=== PATIENT | female | born 1995 | race Caucasian/White ===

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

== ENCOUNTER 2017-02-16 09:28 | Emergency (ER) | payer SELFPAY ==
[~2017-02-16] VITALS: Ht 157.5 cm; Wt 104.3 kg
[~2017-02-16 09:28] MED LIST changes: +CEFD300C3 PO; +PHEN-640 PO
[2017-02-16] MEDS ORDERED: PRD20T PO (10:40)
--- NOTE | 2017-02-16 10:40 | ED EENT ---
History of Present Illness General Chief Complaint: Cough/Cold/Flu Symptoms Stated Complaint: SORE THROAT, FEVER Nursing Triage Note: C/O SORE THROAT FOR ABOUT 2 DAYS. C/O OF BODY ACHES. ALSO C/O NECK PAIN, STARTED TODAY. PT. STATES SHE'S HAD A TEMP. TEMP IN ER AT 99.7. PT HAS NOT TAKEN TYLENOL THIS AM BUT TOOK SOME LAST NIGHT. Source: patient Exam Limitations: no limitations History of Present Illness Time seen by provider: 10:37 Initial Comments To ER with sore throat and ear pain for 2 days. She also has generalized body aches. She has neck pain when turning her neck side to side. She is however able to flex her chin to her chest and extend her neck without pain. Return is 99.7 upon arrival to ER. No antipyretics since last night. No cough. Timing/Duration: abrupt Severity: moderate Associated Symptoms: fever, tooth pain Allergies and Home Medications Allergies Coded Allergies: azithromycin (Verified Allergy, Severe, rash, 07/26/16) Home Medications Cefdinir 300 Mg Capsule, 300 MG PO BID, #14 Ref 0 Prescribed by: CARISA AVILEZ on 07/26/162034 Docusate Sodium 100 Mg Capsule, 100 MG PO BID PRN for CONSTIPATION, #60 Ref 2 Prescribed by: KAYLA PALOMARES on 10/05/15 0950 Ferrous Sulfate 325 Mg Tablet, 325 MG PO DAILY, #30 Ref 2 Prescribed by: KAYLA PALOMARES on 10/05/15 0950 Ibuprofen 600 Mg Tablet, 600 MG PO Q6H, #30 Prescribed by: KAYLA PALOMARES on 10/05/15 0950 Phenazopyridine HCl 200 Mg Tablet, 1 TAB PO Q8H PRN for pain, #30 Ref 0 Prescribed by: CARISA AVILEZ on 07/26/162034 Review of Systems Constitutional: see HPI Eyes: No Symptoms Reported Ears: See HPI, Pain Nose: no symptoms reported Mouth: no symptoms reported Throat: see HPI, pain Respiratory: no symptoms reported Cardiovascular: no symptoms reported : No Musculoskeletal: no symptoms reported Past Uqyjiow-Orcgfx-Nusbln Hx Patient Social History Recent Foreign Travel: No Contact w/Someone Who Travel: No Recent Infectious Disease Expo: No Recent Hopitalizations: No Immunizations Up To Date Tetanus Booster (TDap): Less than 5yrs PED Vaccines UTD: Yes Seasonal Allergies Seasonal Allergies: No Surgeries History of Surgeries: No Respiratory History of Respiratory Disorde: No Cardiovascular History of Cardiac Disorders: No Neurological History of Neurological Disord: No Reproductive System Hx Reproductive Disorders: No 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 Physical Exam Vital Signs Vital Sign - Last 12Hours 02/16/17 09:40 Temp 99.7 Pulse 110 Resp 18 B/P (MAP) 139/78 General Appearance: WD/WN, no apparent distress Eyes: bilateral eye normal inspection, bilateral eye PERRL, bilateral eye EOMI Ears: bilateral ear auricle normal, bilateral ear canal normal, bilateral ear TM normal, bilateral ear other (tympanic membranes are normal in appearance) Mouth/Throat: other (minor pharyngeal erythema. She is able to flex her chin to her chest without any pain in her neck. She does have pain in her neck when turning her head from side to side and the pain is lateral) Neck: non-tender, full range of motion, lymphadenopathy (R), lymphadenopathy (L ) Respiratory: normal breath sounds, no respiratory distress, no accessory muscle use Gastrointestinal: normal bowel sounds, non tender Neurologic/Psychiatric: alert, normal mood/affect, oriented x 3 Skin: normal color, warm/dry Progress/Results/Core Measures Results/Orders Lab Results Laboratory Tests Test 02/16/17 09:49 Range/Units Group A Streptococcus Screen NEGATIVE NEGATIVE Micro Results Microbiology 02/16/17 Influenza Types A,B Antigen (TERESA) - Final, Complete Vital Signs/I&O Vital Sign - Last 12Hours 02/16/17 09:40 Temp 99.7 Pulse 110 Resp 18 B/P (MAP) 139/78 Departure Impression Impression: Primary Impression: Viral pharyngitis Disposition: 01 HOME, SELF-CARE Condition: Stable Departure-Patient Inst. Decision time for Depature: 10:39 Referrals: NO,LOCAL PHYSICIAN (PCP/Family) Primary Care Physician Patient Instructions: Viral Pharyngitis Add. Discharge Instructions: 1. Use Tylenol and Motrin to help with body aches and sore throat and fever 2. Drink clear fluids 3. Fill the steroids today. All discharge instructions reviewed with patient and/or family. Voiced understanding. Scripts Prednisone (Prednisone) 20 Mg Tab 40 MG PO DAILY, #6 TAB Prov: ELENA ELLIS APRN 02/16/17 Work/School Note: Work Release Form Date Seen in the Emergency Department: Feb 16, 2017 Return to Work: Feb 18, 2017 ELENA ELLIS APRN Feb 16, 2017 10:40
== END 2017-02-16 10:45 | disposition home or self-care (01) ==
LOC: EDUNIT# 09:28 → ER 09:31
DX: J02.8 Acute pharyngitis due to other specified organisms (principal); Z97.5 Presence of (intrauterine) contraceptive device
CPT/HCPCS: 87430; 87804; 99282

== ENCOUNTER 2017-02-20 09:47 | Emergency (ER) | payer SELFPAY ==
[~2017-02-20] VITALS: Ht 157.5 cm; Wt 99.8 kg
[~2017-02-20 09:47] MED LIST changes: +PRD20T PO
[2017-02-20] MEDS ORDERED: AMOX-358 PO (09:58)
--- NOTE | 2017-02-20 09:58 | ED EENT ---
History of Present Illness General Chief Complaint: Pediatric Illness/Problems Stated Complaint: R EAR DISCOMFORT Source: patient Exam Limitations: no limitations History of Present Illness Time seen by provider: 09:48 Initial Comments Patient presents to ER by private conveyance with a chief complaint that she is having right ear pain and fullness and decreased hearing. She's had no fevers chills nausea or vomiting. She says she was seen a couple days ago in the ER for a cold and told it was a virus. She says they looked in her ears but did not tell her if there is any problem with that at the time. She has no nausea vomiting or diarrhea. No smoking and no history of prior ear surgery. Previous records indicate the patient was seen on 16 February 2017 and both TMs were normal. She was treated for a virus and given prednisone. Allergies and Home Medications Allergies Coded Allergies: azithromycin (Verified Allergy, Severe, rash, 07/26/16) Home Medications Cefdinir 300 Mg Capsule, 300 MG PO BID, #14 Ref 0 Prescribed by: CARISA AVILEZ on 07/26/162034 Docusate Sodium 100 Mg Capsule, 100 MG PO BID PRN for CONSTIPATION, #60 Ref 2 Prescribed by: KAYLA PALOMARES on 10/05/15 0950 Ferrous Sulfate 325 Mg Tablet, 325 MG PO DAILY, #30 Ref 2 Prescribed by: KAYLA PALOMARES on 10/05/15 0950 Ibuprofen 600 Mg Tablet, 600 MG PO Q6H, #30 Prescribed by: KAYLA PALOMARES on 10/05/15 0950 Phenazopyridine HCl 200 Mg Tablet, 1 TAB PO Q8H PRN for pain, #30 Ref 0 Prescribed by: CARISA AVILEZ on 07/26/162034 Prednisone 20 Mg Tab, 40 MG PO DAILY, #6 Prescribed by: ELENA ELLIS on 02/16/17 1040 Review of Systems Constitutional: No chills, No fever, No malaise Eyes: Denies Blurred Vision, Denies Drainage, Denies Pain Ears: Denies Dizziness, Pain (fullness and difficulty hearing out of the right ear), Denies Tinnitus, Denies Bloody Discharge, Denies Clear Discharge, Denies Purulent Discharge, Denies Serosanguinous Discharge, Denies Previous Injury Nose: congestion, denies pain Mouth: denies clots, denies loose teeth Throat: denies pain, denies swelling Respiratory: No cough, No short of breath Past Pzhttty-Jnmqyd-Gnwzxx Hx Patient Social History Alcohol Use: Denies Use Recreational Drug Use: No Smoking Status: Never a Smoker Recent Foreign Travel: No Contact w/Someone Who Travel: No Recent Hopitalizations: No Immunizations Up To Date Tetanus Booster (TDap): Less than 5yrs PED Vaccines UTD: Yes Seasonal Allergies Seasonal Allergies: No Surgeries History of Surgeries: No Respiratory History of Respiratory Disorde: No Cardiovascular History of Cardiac Disorders: No Neurological History of Neurological Disord: No Reproductive System Hx Reproductive Disorders: No HIV/AIDS: 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 Physical Exam General Appearance: WD/WN, no apparent distress Eyes: bilateral eye normal inspection, bilateral eye PERRL, bilateral eye EOMI Ears: right ear erythema, right ear tenderness, right ear TM red, left ear TM bulging, left ear other (serous effusion), bilateral ear auricle normal, bilateral ear canal normal, bilateral ear TM dull Nose: normal inspection, No sinus tenderness Mouth/Throat: normal mouth inspection, pharynx normal Neck: non-tender, supple, normal inspection Neurologic/Psychiatric: alert, oriented x 3 Departure Impression Impression: Primary Impression: Acute otitis media, right Additional Impression: Acute serous otitis media of left ear without rupture Disposition: 01 HOME, SELF-CARE Condition: Stable Departure-Patient Inst. Decision time for Depature: 09:56 Referrals: NO,LOCAL PHYSICIAN (PCP/Family) Primary Care Physician Patient Instructions: Ear Infections (Otitis Media) (DC) Add. Discharge Instructions: Drink plenty of fluids use Tylenol 1000 mg every 8 hours and or ibuprofen 800 mg every 8 hours for pain. Obtain a bottle of Flonase, fluticasone or Nasacort and use 1 spray each nostril daily for the next 2 weeks to help drain your ears. Obtain the antibiotics from the pharmacy and take one capsule with food twice a day to completion. Discontinue use of the prednisone today. All discharge instructions reviewed with patient and/or family. Voiced understanding. Scripts Amoxicillin/Potassium Clav (Augmentin 875-125 Tablet) 1 Each Tablet 1 EACH PO BID for 10 Days, #20 TAB 0 Refills Prov: CHARMAINE HERNANDEZ 02/20/17 CHARMAINE HERNANDEZ Feb 20, 2017 09:58
== END 2017-02-20 10:04 | disposition home or self-care (01) ==
LOC: EDUNIT# 09:47 → ER 09:47
DX: H65.02 Acute serous otitis media, left ear (principal)
CPT/HCPCS: 99282

== ENCOUNTER 2017-11-21 20:00 | Emergency (ER) | payer MEDICAID, OTHER ==
[~2017-11-21] VITALS: Ht 157.5 cm; Wt 99.8 kg
[~2017-11-21 20:00] MED LIST changes: +AMOX-358 PO; -FERR-74 PO; +FERR325T18 PO
[2017-11-21 20:29] LABS: BILIRUBIN,URINE NEGATIVE (NEGATIVE); CLARITY,URINE CLEAR; COLOR,URINE YELLOW; GLUCOSE, URINE (UA) NEGATIVE (NEGATIVE); KETONES,URINE NEGATIVE (NEGATIVE); LEUKOCYTE ESTERASE ,URINE NEGATIVE (NEGATIVE); NITRITE,URINE NEGATIVE (NEGATIVE); PH,URINE 7 (5-9); PROTEIN,URINE NEGATIVE (NEGATIVE); UROBILINOGEN,URINE NORMAL (NORMAL)
[2017-11-21 20:30] LABS: BASOPHILS % (AUTO) 0 % (0-10); EOSINOPHILS # (AUTO) 0.2 10^3/uL (0.0-0.3); EOSINOPHILS % (AUTO) 1 % (0-10); HEMATOCRIT 39 % (35-52); HEMOGLOBIN 13.8 G/DL (11.5-16.0); LYMPHOCYTES # (AUTO) 3.9 X 10^3 (1.0-4.0); LYMPHOCYTES % (AUTO) 26 % (12-44); MEAN CORPUSCULAR HEMOGLOBIN 30 PG (25-34); MEAN CORPUSCULAR HGB CONC 35 G/DL (32-36); MEAN CORPUSCULAR VOLUME 85 FL (80-99); MONOCYTES # (AUTO) 0.7 X 10^3 (0.0-1.0); MONOCYTES % (AUTO) 5 % (0-12); NEUTROPHILS # (AUTO) 10.3 X 10^3 (1.8-7.8); NEUTROPHILS % (AUTO) 68 % (42-75); PLATELET COUNT 319 10^3/uL (130-400); RED BLOOD COUNT 4.66 10^6/uL (4.35-5.85); RED CELL DISTRIBUTION WIDTH 12.8 % (10.0-14.5); WHITE BLOOD COUNT 15.2 10^3/uL (4.3-11.0)
[2017-11-21 20:38] LABS: BACTERIA,URINE MODERATE /HPF; WBC,URINE RARE /HPF
[2017-11-21] MEDS ORDERED: NS IV 1000 ML 1,000 ML IV ONE (20:42)
--- NOTE | 2017-11-21 20:42 | ED Abdominal Pain ---
General Chief Complaint: Abdominal/GI Problems Stated Complaint: R SIDE PAIN Nursing Triage Note: PATIENT AMBULATORY TO ER COMPLAINING OF RIGHT UPPER AND LOWER ABDOMINAL PAIN RADIATING INTO THE RIGHT BACK AREA. PATIENT STATES PAIN BEGAN YESTERDAY AND HAS BEEN CONSTANT. THE PAIN GETS WORSE WITH TAKING A DEEP BREATH OR LYING SUPINE Sepsis Screen: No Definite Risk Source of Information: Patient Exam Limitations: No Limitations History of Present Illness Date Seen by Provider: Nov 21, 2017 Time Seen by Provider: 20:00 Initial Comments This 22-year-old young lady presents to emergency room with complaints of right upper quadrant pain that radiates around the right flank to the right mid back. Pain is constant at around a 4-5/10. She denies any nausea, vomiting, constipation, diarrhea, fever, urinary changes, or known . She had a Mirena IUD removed in July. She has had 2 periods since then with her last period being September 22. Pain is worse with inspiration but she denies shortness of breath or cough. She is afebrile but tachycardic. She has no known medical problems. She has had no surgeries. Pain does not change with eating. Allergies and Home Medications Allergies Coded Allergies: azithromycin (Verified Allergy, Severe, rash, 07/26/16) Patient Home Medication List Home Medication List Reviewed: Yes Review of Systems Review of Systems Constitutional: no symptoms reported EENTM: No Symptoms Reported Respiratory: No Symptoms Reported Cardiovascular: Other (tachycardia) Gastrointestinal: See HPI Genitourinary: No Symptoms Reported Musculoskeletal: no symptoms reported Skin: no symptoms reported Psychiatric/Neurological: No Symptoms Reported Endocrine: No Symptoms Reported Hematologic/Lymphatic: No Symptoms Reported Past Phgltgj-Orzeaw-Dxdgwx Hx Past Med/Social Hx: Reviewed Nursing Past Med/Soc Hx Patient Social History Alcohol Use: Denies Use Recreational Drug Use: No Smoking Status: Never a Smoker Recent Foreign Travel: No Contact w/Someone Who Travel: No Recent Infectious Disease Expo: No Recent Hopitalizations: No Physical Abuse: No Sexual Abuse: No Mistreated: No Fear: No Immunizations Up To Date Tetanus Booster (TDap): Less than 5yrs PED Vaccines UTD: Yes Seasonal Allergies Seasonal Allergies: No Past Medical History Surgeries: No Respiratory: No Cardiac: No Neurological: No Last Menstrual Period: Sep 20, 2017 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 No Pertinent Family Hx Physical Exam Vital Signs Vital Signs - First Documented 11/21/17 11/21/17 20:01 21:59 Temp 97.4 Pulse 106 Resp 16 B/P (MAP) 121/90 (100) Pulse Ox 96 O2 Delivery Room Air Capillary Refill : Less Than 3 Seconds Height/Weight/BMI Height: 5'2.00" Weight: 220lbs. 0.0oz. 99.358635iv; 35.15 BMI Method:Stated General Appearance: WD/WN, no apparent distress, obese HEENT: PERRL/EOMI, normal ENT inspection Neck: normal inspection Respiratory: lungs clear, normal breath sounds, no respiratory distress, no accessory muscle use Cardiovascular: no edema, no murmur, tachycardia Gastrointestinal: soft, abnormal bowel sounds (decreased), tenderness (in the right upper quadrant and flank. Tenderness to percussion in the right upper quadrant. Palpation of the right lower quadrant induces pain in the right upper quadrant.) Extremities: normal inspection, no pedal edema Back: CVA tenderness (R) Neurologic/Psychiatric: health care assistant II-XII nml as tested, no motor/sensory deficits, alert, normal mood/affect, oriented x 3 Skin: normal color, warm/dry Focused Exam Lactate Level 11/21/17 22:23: Lactic Acid Level 0.77 Lactic Acid Level Laboratory Tests Test 11/21/17 22:23 Lactic Acid Level 0.77 MMOL/L (0.50-2.00) Progress/Results/Core Measures Results/Orders Lab Results Laboratory Tests Test 11/21/17 20:11 11/21/17 20:19 11/21/17 22:23 Range/Units Urine Color YELLOW Urine Clarity CLEAR Urine pH 7 5-9 Urine Specific [place] 1.010 L 1.016-1.022 Urine Protein NEGATIVE NEGATIVE Urine Glucose (UA) NEGATIVE NEGATIVE Urine Ketones NEGATIVE NEGATIVE Urine Nitrite NEGATIVE NEGATIVE Urine Bilirubin NEGATIVE NEGATIVE Urine Urobilinogen NORMAL NORMAL MG/DL Urine Leukocyte Esterase NEGATIVE NEGATIVE Urine RBC (Auto) NEGATIVE NEGATIVE Urine RBC NONE /HPF Urine WBC RARE /HPF Urine Squamous Epithelial Cells 10-25 H /HPF Urine Crystals NONE /LPF Urine Bacteria MODERATE H /HPF Urine Casts NONE /LPF Urine Mucus SMALL H /LPF Urine Culture Indicated NO White Blood Count 15.2 H 4.3-11.0 10^3/uL Red Blood Count 4.66 4.35-5.85 10^6/uL Hemoglobin 13.8 11.5-16.0 G/DL Hematocrit 39 35-52 % Mean Corpuscular Volume 85 80-99 FL Mean Corpuscular Hemoglobin 30 25-34 PG Mean Corpuscular Hemoglobin Concent 35 32-36 G/DL Red Cell Distribution Width 12.8 10.0-14.5 % Platelet Count 319 130-400 10^3/uL Mean Platelet Volume 10.0 7.4-10.4 FL Neutrophils (%) (Auto) 68 42-75 % Lymphocytes (%) (Auto) 26 12-44 % Monocytes (%) (Auto) 5 0-12 % Eosinophils (%) (Auto) 1 0-10 % Basophils (%) (Auto) 0 0-10 % Neutrophils # (Auto) 10.3 H 1.8-7.8 X 10^3 Lymphocytes # (Auto) 3.9 1.0-4.0 X 10^3 Monocytes # (Auto) 0.7 0.0-1.0 X 10^3 Eosinophils # (Auto) 0.2 0.0-0.3 10^3/uL Basophils # (Auto) 0.0 0.0-0.1 10^3/uL Neutrophils % (Manual) 70 % Lymphocytes % (Manual) 26 % Monocytes % (Manual) 2 % Eosinophils % (Manual) 2 % Basophils % (Manual) 0 % Band Neutrophils 0 % Blood Morphology Comment NORMAL Sodium Level 138 135-145 MMOL/L Potassium Level 3.8 3.6-5.0 MMOL/L Chloride Level 104 98-107 MMOL/L Carbon Dioxide Level 24 21-32 MMOL/L Anion Gap 10 5-14 MMOL/L Blood Urea Nitrogen 8 7-18 MG/DL Creatinine 0.74 0.60-1.30 MG/DL Estimat Glomerular Filtration Rate > 60 BUN/Creatinine Ratio 11 Glucose Level 119 H 70-105 MG/DL Calcium Level 9.4 8.5-10.1 MG/DL Corrected Calcium 9.3 8.5-10.1 MG/DL Total Bilirubin 0.6 0.1-1.0 MG/DL Aspartate Amino Transf (AST/SGOT) 21 5-34 U/L Alanine Aminotransferase (ALT/SGPT) 36 0-55 U/L Alkaline Phosphatase 76 40-136 U/L C-Reactive Protein High Sensitivity 1.37 H 0.00-0.50 MG/DL Total Protein 7.7 6.4-8.2 GM/DL Albumin 4.1 3.2-4.5 GM/DL Lipase 18 8-78 U/L Serum Test, Qualitative NEGATIVE NEGATIVE Lactic Acid Level 0.77 0.50-2.00 MMOL/L My Orders Orders - DIANA CHERRY MD Ua Culture If Indicated (11/21/17 20:02) Cbc With Automated Diff (11/21/17 20:12) Comprehensive Metabolic Panel (11/21/17 20:12) Hs C Reactive Protein (11/21/17 20:12) Hcg,Qualitative Serum (11/21/17 20:12) Lipase (11/21/17 20:12) Saline Lock/Iv-Start (11/21/17 20:12) Manual Differential (11/21/17 20:19) Ns Iv 1000 Ml (Sodium Chloride 0.9%) (11/21/17 20:42) Chest Pa/Lat (2 View) (11/21/17 20:59) Abdomen, Flat & Upright/Decub (11/21/17 20:59) Fentanyl Injection (Sublimaze Injection (11/21/17 21:45) Ct Abd/Pelv W (Appendicitis) (11/21/17 21:34) Iohexol Injection (Omnipaque 350 Mg/Ml 1 (11/21/17 22:00) Ns (Ivpb) (Sodium Chloride 0.9%) (11/21/17 22:00) Blood Culture (11/21/17 22:19) Lactic Acid Analyzer (11/21/17 22:19) Ciprofloxacin Iv 400mg/200ml (Cipro Iv S (11/21/17 22:30) Metronidazole 500mg/100ml Ivpb (Flagyl 5 (11/21/17 22:30) Ketorolac Injection (Toradol Injection) (11/21/17 22:30) Medications Given in ED Current Medications Medications Dose Ordered Sig/Ashish Route Start Time Stop Time Status Last Admin Dose Admin Fentanyl Citrate 50 mcg ONCE ONCE IVP 11/21/17 21:45 11/21/17 21:46 DC 11/21/17 21:41 50 MCG Iohexol 100 ml ONCE ONCE IV 11/21/17 22:00 11/21/17 22:36 DC 11/21/17 21:55 100 ML Ketorolac Tromethamine 15 mg ONCE ONCE IVP 11/21/17 22:30 11/21/17 22:31 DC 11/21/17 22:54 15 MG Metronidazole 100 ml @ 100 mls/hr ONCE ONCE IV 11/21/17 22:30 11/21/17 23:29 DC 11/21/17 22:41 100 MLS/HR Sodium Chloride 80 ml ONCE ONCE IV 11/21/17 22:00 11/21/17 22:36 DC 11/21/17 21:55 80 ML Sodium Chloride 1,000 ml @ 0 mls/hr Q0M ONCE IV 11/21/17 20:42 11/21/17 20:43 DC 11/21/17 21:02 1,000 MLS/HR Vital Signs/I&O 11/21/17 11/21/17 20:01 21:59 Temp 97.4 Pulse 106 97 Resp 16 16 B/P (MAP) 121/90 (100) 156/100 (118) Pulse Ox 96 O2 Delivery Room Air Room Air Blood Pressure Mean: 100 Progress Progress Note #1: Time: 21:00 Progress Note Patient is tachycardic with a leukocytosis of 15.2. Labs and urinalysis are otherwise unremarkable. A liter of IV fluid is being infused. X-rays of the chest and abdomen have been ordered. If these are unremarkable we will then pursue ultrasound and/or CT scan. I discussed the case with Dr. Heredia who would like the patient to be nothing by mouth for 6 hours prior to ultrasound. Progress Note #2: Time: 21:38 Progress Note X-rays revealed no cause for patient's pain. Patient reports pain is escalating and is now 7/10. Patient was reexamined and now found to have pain in the right lower quadrant. Heel tap is positive on the right. Patient has tenderness to light percussion in the right lower quadrant. Positive Rovsing is also present. Given these new findings on repeat exam, CT scan is now being entertained. I discussed risks and benefits of CT imaging for evaluation of gallbladder and appendix. Patient accepts the risks and requests CT imaging. Fentanyl was ordered for pain. Progress Note #3: Time: 22:[address] scan revealed no evidence of appendicitis or acute cholecystitis. Heart rate is trending down with IV fluids. However, patient has demonstrated leukocytosis and tachycardia and the presence of right upper quadrant pain. Case was discussed with Dr. Heredia again. Options were reviewed including admission versus initial antibiotic treatment in the ER and outpatient follow- up in his clinic. Dr. Heredia prefers the latter. He would like to see her in the clinic at 11:00 tomorrow. We will keep her nothing by mouth after 05:00. She is receiving a dose of Cipro and Flagyl by IV route after blood cultures and lactic acid. Blood cultures are being drawn as a precaution although no definite source of infection has been identified. Toradol will be given for further pain management. Diagnostic Imaging Diagonstic Imaging: Xray Plain Films/CT/US/NM/MRI: chest Comments Two-view chest x-ray viewed by me. Report reviewed. See report below: NAME: BEVERLEY BARRON [facility] REC#: [id number] PT STATUS: REG ER : 1995 PHYSICIAN: DIANA CHERRY MD ADMIT DATE: 11/21/17/ER Signed Date of Exam: 11/21/17 ABDOMEN, FLAT & UPRIGHT/DECUB INDICATION: Upper abdominal pain. Time of exam: 9:44 PM No free air is identified. The bowel gas pattern is nonobstructed. No pathologic calcifications are seen. IMPRESSION: No acute abnormality is detected. Dictated by: Dictated on workstation # [id number] Dict: 11/21/172135 Trans: 11/21/172207 Interpreted by: JENNIFER FORTE MD Electronically signed by: JENNIFER FORTE MD 11/21/172207 Diagonstic Imaging: Xray Plain Films/CT/US/NM/MRI: abdomen, pelvis Comments KUB and upright x-ray viewed by me and report reviewed. See report below: NAME: BEVERLEY [facility] REC#: [id number] PT STATUS: REG ER : 1995 PHYSICIAN: DIANA CHERRY MD ADMIT DATE: 11/21/17/ER Signed Date of Exam: 11/21/17 ABDOMEN, FLAT & UPRIGHT/DECUB INDICATION: Upper abdominal pain. Time of exam: 9:44 PM No free air is identified. The bowel gas pattern is nonobstructed. No pathologic calcifications are seen. IMPRESSION: No acute abnormality is detected. Dictated by: Dictated on workstation # [id number] Dict: 11/21/172135 Trans: 11/21/172207 Interpreted by: JENNIFER FORTE MD Electronically signed by: JENNIFER FORTE MD 11/21/172207 Diagonstic Imaging: CT Plain Films/CT/US/NM/MRI: abdomen, pelvis Comments CT abdomen and pelvis viewed by me and report reviewed. See report below: NAME: BEVERLEY [facility]ARRON [facility] REC#: [id number] PT STATUS: REG ER : 1995 PHYSICIAN: DIANA CHERRY MD ADMIT DATE: 11/21/17/ER Signed Date of Exam: 11/21/17 CT ABD/PELV W (APPENDICITIS) PROCEDURE: CT abdomen and pelvis with contrast, rule out appendicitis. TECHNIQUE: Multiple contiguous axial images were obtained through the abdomen and pelvis after the administration of intravenous contrast. INDICATION: Right sided abdominal pain. FINDINGS: The lung bases are clear. The liver shows diffuse low density consistent with hepatic steatosis. No discrete liver mass is seen. The gallbladder is unremarkable. The pancreas and spleen are unremarkable. No adrenal mass is seen. The kidneys are unremarkable. Aorta is unremarkable. The small and large bowel loops are normal caliber. No obstruction is seen. The appendix is visualized and unremarkable. No free fluid is seen in the abdomen. The bladder is unremarkable. The uterus is unremarkable. There is a 19 mm cyst involving the right ovary. Trace free fluid is present. IMPRESSION: 1. Hepatic steatosis. 2. No CT evidence of acute appendicitis. 3. A 19 mm right ovarian cyst. Dictated by: Dictated on workstation # [id number] Dict: 11/21/172199 Trans: 11/21/172207 Interpreted by: JENNIFER FORTE MD Electronically signed by: JENNIFER FORTE MD 11/21/17 [id number] Departure Impression Primary Impression: Right-sided abdominal pain of unknown cause Additional Impressions: Leukocytosis Qualified Codes: D72.829 - Elevated white blood cell count, unspecified Right ovarian cyst Hepatic steatosis Disposition: 01 HOME, SELF-CARE Condition: Improved Departure-Patient Inst. Decision time for Depature: 22:29 Referrals: MARCELO HEREDIA MD NO,LOCAL PHYSICIAN (PCP) Primary Care Physician Patient Instructions: Acute Abdomen (Belly Pain), Adult (DC) Add. Discharge Instructions: Stick to a clear liquid diet until 5:00 am. Then have nothing to eat or drink until otherwise instructed by Dr. Heredia. Until 5:00 you may have ibuprofen up to 600 mg every 6 hours as needed and/or Tylenol (acetaminophen) up to 1000 mg every 6 hours as needed for pain. See Dr. Heredia at his office at 11:00. His office information is listed below. Please call early in the morning to confirm and provide any information to the office needed. In the meantime, return to the ER if you have worsening symptoms such as development of vomiting , increasing severity of abdominal pain, or fevers over 100. All discharge instructions reviewed with patient and/or family. Voiced understanding. Copy Copies To 1: MARCELO HEREDIA MD, JOSHUA T MD Nov 21, 2017 20:42
[2017-11-21 20:46] LABS: ALANINE AMINOTRANSFERASE 36 U/L (0-55); ALBUMIN 4.1 GM/DL (3.2-4.5); ALKALINE PHOSPHATASE 76 U/L (40-136); BILIRUBIN,TOTAL 0.6 MG/DL (0.1-1.0); BUN/CREATININE RATIO 11; CALCIUM 9.4 MG/DL (8.5-10.1); CARBON DIOXIDE 24 MMOL/L (21-32); CHLORIDE 104 MMOL/L (98-107); CREATININE SERUM 0.74 MG/DL (0.60-1.30); GFR ESTIMATED > 60; GLUCOSE 119 MG/DL (70-105); LIPASE 18 U/L (8-78); POTASSIUM 3.8 MMOL/L (3.6-5.0); SODIUM 138 MMOL/L (135-145); TOTAL PROTEIN 7.7 GM/DL (6.4-8.2)
[2017-11-21 20:54] LABS: BAND NEUTROPHILS 0 %; BASOPHILS % (MANUAL) 0 %; EOSINOPHILS % (MANUAL) 2 %; LYMPHOCYTES % (MANUAL) 26 %; MONOCYTES % (MANUAL) 2 %; NEUTROPHILS % (MANUAL) 70 %; RBC MORPH NORMAL
--- NOTE | 2017-11-21 21:38 | Diagnostic Imaging Report ---
INDICATION: Upper abdominal pain and pain during inspiration. TIME OF EXAM: 9:45 PM COMPARISON: No prior studies are available for comparison. FINDINGS: The heart size is normal. The pulmonary vascularity is unremarkable. The lungs are clear. No infiltrate, effusion or pneumothorax is detected. IMPRESSION: No acute cardiopulmonary process is detected. Dictated by: Dictated on workstation # [id number]
--- NOTE | 2017-11-21 21:40 | Diagnostic Imaging Report ---
INDICATION: Upper abdominal pain. Time of exam: 9:44 PM No free air is identified. The bowel gas pattern is nonobstructed. No pathologic calcifications are seen. IMPRESSION: No acute abnormality is detected. Dictated by: Dictated on workstation # [id number]
[2017-11-21] MEDS ORDERED: fentaNYL INJECTION 100 MCG/2 ML AMP IVP ONE (21:45)
[2017-11-21 21:59] VITALS: BP 156/100
[2017-11-21] MEDS ORDERED: IOHEXOL 350 MG/ML 100 ML (OMNIPAQUE 350) VIAL IV ONE (22:00)
[2017-11-21] MEDS ORDERED: NS 250 ML (IVPB) BAG IV ONE (22:00)
--- NOTE | 2017-11-21 22:05 | Diagnostic Imaging Report ---
PROCEDURE: CT abdomen and pelvis with contrast, rule out appendicitis. TECHNIQUE: Multiple contiguous axial images were obtained through the abdomen and pelvis after the administration of intravenous contrast. INDICATION: Right sided abdominal pain. FINDINGS: The lung bases are clear. The liver shows diffuse low density consistent with hepatic steatosis. No discrete liver mass is seen. The gallbladder is unremarkable. The pancreas and spleen are unremarkable. No adrenal mass is seen. The kidneys are unremarkable. Aorta is unremarkable. The small and large bowel loops are normal caliber. No obstruction is seen. The appendix is visualized and unremarkable. No free fluid is seen in the abdomen. The bladder is unremarkable. The uterus is unremarkable. There is a 19 mm cyst involving the right ovary. Trace free fluid is present. IMPRESSION: 1. Hepatic steatosis. 2. No CT evidence of acute appendicitis. 3. A 19 mm right ovarian cyst. Dictated by: Dictated on workstation # [id number]
[2017-11-21] MEDS ORDERED: CIPROFLOXACIN IV 400MG/200ML 200 ML IV ONE (22:30)
[2017-11-21] MEDS ORDERED: KETOROLAC 30 MG/ML VIAL IVP ONE (22:30)
[2017-11-21] MEDS ORDERED: metroNIDAZOLE 500MG/100ML IVPB 100 ML IV ONE (22:30)
[2017-11-21 23:47] VITALS: BP 134/83
[2017-11-22] MEDS ORDERED: ONDANSETRON 4 MG/2 ML (SDV) Z0FRAN IVP ONE (00:30)
[2017-11-22 00:53] VITALS: BP 126/84
== END 2017-11-22 00:53 | disposition home or self-care (01) ==
LOC: ER 20:00 → EDUNIT# 20:00 → ER 11-22 00:53
DX: N83.201 Unspecified ovarian cyst, right side (principal); K76.0 Fatty (change of) liver, not elsewhere classified; D72.829 Elevated white blood cell count, unspecified; R07.1 Chest pain on breathing; Z88.0 Allergy status to penicillin; Z97.5 Presence of (intrauterine) contraceptive device
CPT/HCPCS: 36415; 71046; 74019; 74177; 80053; 81000; 83605; 83690; 84703; 85007; 85027; 86141; 87040; 96361; 96365; 96375

== ENCOUNTER → 2017-11-22 | Outpatient (CLI) | payer MEDICAID ==
--- NOTE | 2017-11-22 10:08 | Diagnostic Imaging Report ---
PROCEDURE: US Gallbladder. TECHNIQUE: Multiple real-time grayscale images were obtained over the right upper quadrant in various projections. INDICATION: Right upper quadrant pain. FINDINGS: There is diffuse increased echogenicity of the liver compatible with fatty infiltration. There appears to be some focal fatty sparing near the bernadine hepatis. There is no biliary duct dilatation. Common bile duct measures 4 mm. There is no cholelithiasis, gallbladder wall thickening or pericholecystic fluid. Pancreas is not well visualized due to bowel gas. Right kidney is normal. There is no ascites. IMPRESSION: Fatty infiltration of the liver with some focal fatty sparing at the bernadine hepatis. Otherwise unremarkable right upper quadrant ultrasound. Dictated by: Dictated on workstation # [id number]
== END ==
LOC: RAD 09:13
PROVIDERS: ATTEND Surgery
DX: K76.0 Fatty (change of) liver, not elsewhere classified (principal)
CPT/HCPCS: 76705

== ENCOUNTER 2017-11-24 09:38 | Outpatient (CLI) | payer MEDICAID ==
[~2017-11-24] VITALS: Ht 157.5 cm; Wt 99.8 kg
== END 2017-11-24 13:56 | disposition home or self-care (01) ==
LOC: PREOP 09:38
PROVIDERS: ATTEND Surgery
DX: Z01.818 Encounter for other preprocedural examination (principal)

== ENCOUNTER 2017-11-28 10:40 | Day surgery (SDC) | payer MEDICAID ==
[~2017-11-28] VITALS: Ht 157.5 cm; Wt 99.8 kg
[2017-11-28] MEDS ORDERED: NS IV 500 ML 500 ML IV PRN (12:14)
[2017-11-28] MEDS ORDERED: MIDAZOLAM 2 MG/2 ML (VERSED) VIAL IVP ONE (12:15)
[2017-11-28] MEDS ORDERED: HURRICAINE EXT TUBE (BENZOCAINE) XX PRN (12:15)
[2017-11-28] MEDS ORDERED: fentaNYL INJECTION 100 MCG/2 ML AMP IVP ONE (12:15)
[2017-11-28] MEDS ORDERED: NS IV 500 ML 500 ML ONE (12:22)
[2017-11-28 12:40] VITALS: BP 142/96
[2017-11-28 12:51] LABS: HEMOGLOBIN 13.8 G/DL (11.5-16.0); RED BLOOD COUNT 4.81 10^6/uL (4.35-5.85); RED CELL DISTRIBUTION WIDTH 13.2 % (10.0-14.5)
[2017-11-28] MEDS ORDERED: MIDAZOLAM 2 MG/2 ML (VERSED) VIAL ONE ×3 (13:18)
[2017-11-28] MEDS ORDERED: fentaNYL INJECTION 100 MCG/2 ML AMP ONE (13:19)
[2017-11-28] MEDS ORDERED: HURRICAINE EXT TUBE (BENZOCAINE) ONE (13:19)
--- NOTE | 2017-11-28 13:31 | Conscious Sedation/ASA ---
Conscious Sedation Pre-Proced Time 13:31 ASA Score 2 For ASA 3 and 4: Consider anesthesia and medical clearance. Also, for patients with a history of failed moderate sedation consider anesthesia. Airway Lungs Heart ASA score ASA 1: a normal healthy patient ASA 2: a patient with a mild systemic disease (mid diabetes, controlled hypertension, obesity ASA 3: a patient with a severe systemic disease that limits activity (angina , COPD, prior Myocardial infarction) ASA 4: a patient with an incapacitating disease that is a constant threat to life (CHF, renal failure) ASA 5: a moribund patient not expected to survive 24 hrs. (ruptured aneurysm) ASA 6: a declared brain patient whose organs are being harvested. For emergent operations, add the letter E after the classification Mallampati Classification Grade 1 Sedation Plan Discussed options with patient/fam The patient is an appropriate candidate to undergo the planned procedure, sedation, and anesthesia. The patient immediately re-assessed prior to indication. MARCELO HEREDIA MD Nov 28, 2017 13:31
--- NOTE | 2017-11-28 13:42 | Endo Procedure Record ---
Endo Procedure Report Date of Procedure Last Colonoscopy: No Nov 28, 2017 Surgeon (s) MARCELO HEREDIA MD Post Procedure/Op Diagnosis duodenal erosions. Distal gastritis Procedure Performed EGD with antral biopsy for H. pylori Description of Procedure Anesthesia Type: Conscious Sedation Specimen(s) collected/removed antral mucosa Description of the Procedure indication for the procedure: This lady came in for an upper endoscopy to evaluate epigastric pain. Informed consent was obtained after reviewing the procedure in detail. Description of procedure: She was placed in left lateral decubitus position and her vital signs were monitored. Conscious sedation was achieved using Versed and fentanyl. The flexible gastroscope was then introduced down the esophagus, past the stomach, into the proximal duodenum. Findings: Esophagus: Normal Stomach: Mild distal gastritis. Biopsy for H. pylori was obtained. Duodenum: A total of 2, shallow erosions were found along the first part. She tolerated the procedure well and was taken back to the nursing area in a stable condition. Impression: Epigastric pain. Gastritis and duodenal erosions. Will treat with proton pump inhibitor therapy first. MARCELO HEREDIA MD Nov 28, 2017 13:42
--- NOTE | 2017-11-28 13:47 | Discharge Inst-Simple/Standard ---
Discharge Inst-Standard Discharge Medications New, Converted or Re-Newed RX: Other Patient Instructions/Follow Up Plan of Care/Instructions/FU: please call for Protonix 40 mg daily for 30 day supply with 2 refills to her pharmacy. Follow-up with me in 2 weeks Activity as Tolerated: Yes Discharge Diet: No Restrictions MARCELO HEREDIA MD Nov 28, 2017 13:47
[2017-11-28 14:10] VITALS: BP 123/66
[2017-11-28 14:40] VITALS: BP 139/95
[2017-11-28 15:45] VITALS: BP 139/95
== END 2017-11-28 15:45 | disposition home or self-care (01) ==
LOC: ENDO 10:40
PROVIDERS: ATTEND Surgery
DX: K29.70 Gastritis, unspecified, without bleeding (principal); K26.9 Duodenal ulcer, unspecified as acute or chronic, without hemorrhage or perforation
CPT/HCPCS: 36415; 84703; 85027

== ENCOUNTER → 2017-12-05 | Outpatient (CLI) | payer MEDICAID ==
[~2017-12-05] MED LIST changes: +CATHETER FLUSH 10 ML SYR IV PRN
--- NOTE | 2017-12-05 17:12 | Diagnostic Imaging Report ---
INDICATION: Right upper quadrant pain. TECHNIQUE: Acquisitions were acquired of the abdomen after the administration of 5.44 mCi of technetium 99m Choletec. Ejection fraction was calculated after the patient drank Ensure. FINDINGS: There is homogeneous uptake of isotope throughout the liver. There is significant accumulation within the gallbladder by 60 minutes. There is free flow of activity in the small bowel. Ejection fraction is 17.9%. IMPRESSION: No evidence of cystic duct obstruction however there is an abnormally low ejection fraction of 17.9% Dictated by: Dictated on workstation # [id number]
== END ==
LOC: CARD 12:38
PROVIDERS: ATTEND Surgery
DX: R10.11 Right upper quadrant pain (principal); K82.8 Other specified diseases of gallbladder
CPT/HCPCS: 78227

== ENCOUNTER 2017-12-07 09:30 | Outpatient (CLI) | payer MEDICAID ==
[~2017-12-07] VITALS: Ht 157.5 cm; Wt 99.8 kg
[~2017-12-07 09:30] MED LIST changes: -CATHETER FLUSH 10 ML SYR IV PRN
[2017-12-08] MEDS ORDERED: ACHD5005 PO (10:34)
== END 2017-12-07 13:30 | disposition home or self-care (01) ==
LOC: PREOP 09:30
PROVIDERS: ATTEND Surgery
DX: Z01.818 Encounter for other preprocedural examination (principal)

== ENCOUNTER 2017-12-08 07:18 | Day surgery (SDC) | payer MEDICAID ==
[~2017-12-08] VITALS: Ht 157.5 cm; Wt 99.8 kg
[2017-12-08 07:30] VITALS: BP 149/88
[2017-12-08] MEDS ORDERED: ceFAZolin 2 GM IV Premixed 50 ML IV ONE (07:30)
[2017-12-08] MEDS ORDERED: metroNIDAZOLE 500MG/100ML IVPB 100 ML IV ONE (07:30)
[2017-12-08] MEDS ORDERED: BUP/EPI 0.5% 1:200,000 (SENSORCAINE) 30 ML VIAL ONE (07:36)
[2017-12-08] MEDS ORDERED: CATHETER FLUSH 10 ML SYR IV PRN (07:45)
[2017-12-08] MEDS ORDERED: LACTATED RINGERS 1,000 ML IV PRN (07:48)
[2017-12-08] MEDS ORDERED: ROCURONIUM 10 MG/ML 5 ML SYRINGE IV ONE (08:08)
[2017-12-08] MEDS ORDERED: fentaNYL INJECTION 100 MCG/2 ML AMP ONE (08:08)
[2017-12-08] MEDS ORDERED: proPOfol 200 MG/20 ML (DIPRIVAN) VIAL IV ONE (08:08)
[2017-12-08] MEDS ORDERED: MIDAZOLAM 2 MG/2 ML (VERSED) VIAL ONE (08:08)
[2017-12-08] MEDS ORDERED: ONDANSETRON 4 MG/2 ML (SDV) Z0FRAN ONE (08:08)
[2017-12-08] MEDS ORDERED: LIDOCAINE PF 2% 5 ML (XYLOCAINE) VIAL ONE (08:08)
[2017-12-08] MEDS ORDERED: LACTATED RINGERS 1,000 ML IV ONE (08:08)
[2017-12-08] MEDS ORDERED: SEVOFLURANE (ULTANE) 15 ML INHAL SOLN ONE ×6 (08:13→10:29)
[2017-12-08] MEDS ORDERED: DEXAMETHASONE 10 MG/ML (DECADRON) 1 ML VIAL ONE (08:13)
--- NOTE | 2017-12-08 08:59 | Progress Note-Pre Operative ---
Pre-Operative Progress Note H&P Reviewed The H&P was reviewed, patient examined and no changes noted. Date Seen by Provider: Dec 06, 2017 Time Seen by Provider: 11:00 Date H&P Reviewed: Dec 08, 2017 Time H&P Reviewed: 08:59 Pre-Operative Diagnosis: Chronic cholecystitis MARCELO HEREDIA MD Dec 08, 2017 08:59
[2017-12-08] MEDS ORDERED: PHENYLEPHRINE 100 MCG/ML 10 ML (ANESTHESIA) SYR ONE (10:00)
[2017-12-08] MEDS ORDERED: PHENYLEPHRINE INJ 10 MG/ML (NEO-SYNEPHRINE 1%) ONE (10:00)
[2017-12-08] MEDS ORDERED: GLYCOPYRROLATE 0.2 MG/ML (ROBINUL) 2 ML VIAL ONE (10:15)
[2017-12-08] MEDS ORDERED: NEOSTIGMINE 1 MG/ML 5 ML SYRINGE ONE (10:15)
[2017-12-08] MEDS ORDERED: morphine INJ 10 MG/ML 1ML (SYR OR VIAL) ONE (10:21)
--- NOTE | 2017-12-08 10:33 | Operative Report ---
Operative Report Date of Procedure/Surgery Dec 08, 2017 Surgeon (s) MARCELO HEREDIA MD [employer]olta[employer] Installer (s): Harsha Shepherd ( Med Student III) Post-Operative Diagnosis Same Procedure Performed Robotic-assisted cholecystectomy Description of Procedure Anesthesia Type: General Estimated blood loss (mL): Minimal Specimen(s) collected/removed Gallbladder Description of the Procedure Indication for the procedure: This lady presented with symptoms due to chronic, acalculous cholecystitis and reduced ejection fraction on HIDA scan. She was therefore offered cholecystectomy using minimally invasive technique with robotic assistance. Informed consent was obtained after reviewing the operative details and complications of wound infection, bile leak and the potential for persistent symptoms. Description of procedure: She was placed supine on the operative table and general anesthesia induced. 2 g of Ancef and 500 mg of Flagyl were administered intravenously as prophylaxis against wound infection. Sequential compression devices were placed around her legs, to minimize the risk of venous thrombosis. Abdomen was prepared and draped in the usual sterile manner. Pneumoperitoneum was established using a Veress needle introduced over the supra-umbilical region. Intra-abdominal pressure was maintained at 17 mmHg(obesity). A 12 mm trocar was placed and anatomy visualized using the high definition, 3- dimensional laparoscope associated with da Cory system. Under direct view, I placed a 5 mm trocar over the left upper quadrant, followed by 2 additional 8 mm trocars over each side of the abdomen. The patient was then turned in the reverse Trendelenburg position, with the right side tilted up. The robotic system was then docked in place. Fundus of the gallbladder was retracted cephalad and the infundibulum grasped with Cadiere forceps. Peritoneum overlying Calot's triangle was incised using the hook cautery, delineating the cystic duct and the artery. Both were controlled between locking clips. Cholecystectomy was then completed using the hook cautery. The gallbladder was then placed in an Endo Catch bag and removed via the supraumbilical trocar site. The fascia over this incision was closed using #1 Vicryl using the Kevyn Bauer device under direct view. Skin incisions were closed using 4-0 Vicryl, in a subcuticular fashion. 0.5 percent Marcaine with epinephrine was infiltrated along the incisions, both preemptively and at the conclusion of the operation. She tolerated it well, was extubated in the operating room and taken to the recovery room in a stable condition. Findings of the Procedure See the operative report Allergies and Home Medications Allergies Coded Allergies: azithromycin (Verified Allergy, Severe, rash, 12/07/17) Home Medications No Active Prescriptions or Reported Meds Patient Home Medication List Home Medication List Reviewed: Yes MARCELO HEREDIA MD Dec 08, 2017 10:33
[2017-12-08] MEDS ORDERED: ACHD5005 PO (10:34)
--- NOTE | 2017-12-08 10:34 | Discharge Inst-Simple/Standard ---
Discharge Inst-Standard Discharge Medications New, Converted or Re-Newed RX: RX on Chart Patient Instructions/Follow Up Plan of Care/Instructions/FU: Band-Aids off in 48 hours. Incentive spirometry. Follow-up in 3 weeks. Activity as Tolerated: Yes Discharge Diet: No Restrictions MARCELO HEREDIA MD Dec 08, 2017 10:34
[2017-12-08] MEDS ORDERED: fentaNYL INJECTION 100 MCG/2 ML AMP IVP ONE (10:45)
[2017-12-08] MEDS ORDERED: MEPERIDINE (DEMEROL) INJ 50 MG/ML IVP ONE (10:45)
[2017-12-08] MEDS ORDERED: morphine INJ 10 MG/ML 1ML (SYR OR VIAL) IVP ONE (10:45)
[2017-12-08] MEDS ORDERED: ONDANSETRON 4 MG/2 ML (SDV) Z0FRAN IVP PRN (10:45)
[2017-12-08] MEDS ORDERED: KETOROLAC 30 MG/ML VIAL IVP ONE (11:15)
[2017-12-08 11:35] VITALS: BP 116/68
--- NOTE | 2017-12-08 11:35 | Anesthesia-General Post-Op ---
General Patient Condition Mental Status/LOC: Same as Preop Cardiovascular: Satisfactory Nausea/Vomiting: Absent Respiratory: Satisfactory Pain: Controlled Complications: Absent Post Op Complications Complications None Follow Up Care/Instructions Patient Instructions None needed. Anesthesia/Patient Condition Patient Condition Patient is doing well, no complaints, stable vital signs, no apparent adverse anesthesia problems. No complications reported per nursing. SHILA VELARDE CRNA Dec 08, 2017 11:35
[2017-12-08 12:05] VITALS: BP 106/85
[2017-12-08] MEDS ORDERED: HYDROcodone/APAP 5 MG/325 MG (LORTAB) TAB ONE (12:10)
[2017-12-08] MEDS ORDERED: HYDROcodone/APAP 5 MG/325 MG (LORTAB) TAB PO ONE (12:15)
[2017-12-08 12:35] VITALS: BP 111/52
[2017-12-08] MEDS ORDERED: ONDANSETRON 4 MG (ZOFRAN) ORAL DISSOLVE TAB PO ONE (13:00)
== END 2017-12-08 13:20 | disposition home or self-care (01) ==
LOC: SDC 07:18
PROVIDERS: ATTEND Surgery
DX: K81.1 Chronic cholecystitis (principal)
CPT/HCPCS: 84703; 87081; 88304; 94664